=== PATIENT | male | born 1950 ===

== ENCOUNTER 2019-01-03 10:25 | Emergency (ER) | payer MEDICARE ==
[2019-01-03 11:07] LABS: Basophils % (Auto) 0.5 % (0.0-1.8); Eosinophils # (Auto) 0.1 K/mm3 (0.0-0.4); Eosinophils % (Auto) 1.7 % (0.0-4.3); Hematocrit 45.3 % (35.5-45.6); Hemoglobin 15.3 gm/dl (11.8-15.2); Lymphocytes # (Auto) 1.9 K/mm3 (1.2-5.4); Mean Corpuscular HGB Conc 34 % (32-34); Mean Corpuscular Volume 97 fl (84-94); Monocytes # (Auto) 0.8 K/mm3 (0.0-0.8); Monocytes % (Auto) 9.7 % (0.0-7.3); Platelet Count 263 K/mm3 (140-440); Red Blood Count 4.65 M/mm3 (3.65-5.03); Red Cell Distribution Width 13.5 % (13.2-15.2)
[2019-01-03 11:24] LABS: BUN/Creatinine Ratio 19; Blood Urea Nitrogen 19 mg/dL (9-20); Calcium 8.6 mg/dL (8.4-10.2); Hemolysis Index 10
--- NOTE | 2019-01-03 11:32 | Emergency Department Report ---
ED Psych HPI - General Chief Complaint: GI Bleed Stated Complaint: VOMIT BLOOD Time Seen by Provider: 01/03/19 10:57 Source: patient Mode of arrival: Ambulatory Limitations: No Limitations - History of Present Illness Initial Comments: Patient is a 68-year-old male that presents emergency room with complaints of blood streaking in his vomitus and suicidal ideations and depression. Patient states that he had blood streaking in his vomitus times one last night. Patient states he is not having vomiting or pain at this time. Patient denies abdominal pain. Patient denies chest pain. Patient denies changes in and color in his stool and change in bowel habits. Patient denies rectal pain. Patient denies bright red blood per rectum. Patient denies melena. Patient denies fever and chills. After initial conversation was down talking by his significant vomitus, the patient states she's been having thoughts of suicide. Patient states been depr essed. Patient states she is currently at [facility] but is not getting the help he needs. Patient states he has thoughts of jumping into traffic to take his life. Patient states she is tired of living. MD Complaint: suicidal ideation, feels depressed -: Gradual, week(s) Associated Psychiatric Symptoms: depression, suicidal ideation History of same: Yes Quality: constant Improves With: none Worsens With: none Associated Symptoms: vomiting. denies: confusion, headache, shortness of breath, nausea, syncope, insomnia If Self Harm: admits thoughts of, has plan - Related Data Allergies Allergy/AdvReac Type Severity Reaction Status Date / Time No Known Allergies Allergy Unverified 03/29/18 16:46 ED Review of Systems ROS: Stated complaint: VOMIT BLOOD Other details as noted in HPI Constitutional: denies: chills, fever Eyes: denies: eye pain, eye discharge, vision change ENT: denies: ear pain, throat pain Respiratory: denies: cough, shortness of breath, wheezing Cardiovascular: denies: chest pain, palpitations Endocrine: no symptoms reported Gastrointestinal: vomiting, hematemesis. denies: abdominal pain, nausea, diarrhea, constipation, melena, hematochezia Genitourinary: denies: urgency, dysuria Musculoskeletal: denies: back pain, joint swelling, arthralgia Skin: denies: rash, lesions Neurological: denies: headache, weakness, paresthesias Psychiatric: depression, suicidal thoughts. denies: anxiety Hematological/Lymphatic: denies: easy bleeding, easy bruising ED Past Medical Hx - Past Medical History Previous Medical History?: Yes Hx Hypertension: Yes Hx Psychiatric Treatment: Yes - Surgical History Past Surgical History?: Yes Hx Appendectomy: Yes Additional Surgical History: BACK SURGERY - Family History Family history: no significant - Social History Smoking Status: Never Smoker Substance Use Type: None ED Physical Exam - General Limitations: No Limitations General appearance: alert, in no apparent distress - Head Head exam: Present: atraumatic, normocephalic - Eye Eye exam: Present: normal appearance - ENT ENT exam: Present: mucous membranes moist - Neck Neck exam: Present: normal inspection - Respiratory Respiratory exam: Present: normal lung sounds bilaterally. Absent: respiratory distress, wheezes, rales, rhonchi - Cardiovascular Cardiovascular Exam: Present: regular rate, normal rhythm. Absent: systolic murmur, diastolic murmur, rubs, gallop - GI/Abdominal GI/Abdominal exam: Present: soft, normal bowel sounds. Absent: distended, tenderness, guarding - Rectal Rectal exam: Present: deferred - Extremities Exam Extremities exam: Present: normal inspection - Back Exam Back exam: Present: normal inspection - Neurological Exam Neurological exam: Present: alert, oriented X3 - Psychiatric Psychiatric exam: Present: normal affect, normal mood - Skin Skin exam: Present: warm, dry, intact, normal color. Absent: rash ED Course Vital Signs 01/03/19 01/03/19 01/03/19 10:33 14:36 20:09 Temperature 98.6 F 98.4 F 98.5 F Pulse Rate 70 71 72 Respiratory 22 18 20 Rate Blood Pressure 144/85 Blood Pressure 141/56 151/85 [Left] O2 Sat by Pulse 97 95 97 Oximetry 01/04/19 01/04/19 01:00 09:25 Temperature 97.6 F 98.3 F Pulse Rate 68 61 Respiratory 20 18 Rate Blood Pressure Blood Pressure 148/72 114/69 [Left] O2 Sat by Pulse 98 97 Oximetry - Reevaluation(s) Reevaluation #1: Initial evaluation done. Patient was originally here for emergent evaluation of his blood streaking in his vomitus however the patient admitted to suicidal ideations. Patient placed on 1013. Patient was evaluated by psych. 01/03/19 11:31 Reevaluation #2: Patient is medically clear. Patient refuses in the ER for GI bleed and if patient was discharged I would recommend outpatient treatment for his blood- tinged vomitus. However since the patient is now on a 1013 for psychiatric condition patient will remain in the ER but is medically cleared. I discussed all results and recommendations with patient. 01/03/19 14:40 ED Medical Decision Making - Lab Data Result diagrams: 01/03/19 10:53 01/03/19 10:51 - Medical Decision Making Patient is a 68-year-old male that presents emergency room with blood-streaked vomitus times one. Patient has been stable in the ER. Patient has any vomiting or symptoms in the ER. Patient complained upon initial evaluation of suicidal ideations with depression. Patient also stated he had a plan to jump [employer]. Patient was initially placed on 1013. Patient is medically clear. Patient's labs unremarkable. As far as the patient's blood-streaked vomitus the patient is medically cleared and can be followed up as an outpatient. Patient's H&H is normal. Patient seen by mental health. Patient will remain in the ER on a 1013 until accepted into appropriate psychiatric facility. - Differential Diagnosis depression. Blood in vomitus. Suicidal ideation with the plan Critical care attestation.: If time is entered above; I have spent that time in minutes in the direct care of this critically ill patient, excluding procedure time. ED Disposition Clinical Impression: Suicidal ideation Vomiting blood Qualifiers: Nausea presence: with nausea Qualified Code(s): K92.0 - Hematemesis Depression Qualifiers: Depression Type: unspecified Qualified Code(s): F32.9 - Major depressive disorder, single episode, unspecified Disposition: DC-01 TO HOME OR SELFCARE Is pt being admited?: No Does the pt Need Aspirin: No Condition: Stable Referrals: PRIMARY CARE, [Primary Care Provider] - 3-5 Days JULISSA MORGAN MD [Staff Physician] - 3-5 Days Forms: Accompanied Note Time of Disposition: 14:42
[2019-01-03 13:03] LABS: INR 0.96 (0.87-1.13)
[2019-01-03 13:04] LABS: Partial Thromboplastin Time 26.3 Sec. (24.2-36.6)
[2019-01-03 13:05] LABS: Bilirubin,Urine NEG (Negative); Blood,Urine NEG (Negative); Color,Urine Yellow (Yellow); Mucus,Urine FEW /HPF; Protein,Urine <15 mg/dL mg/dL (Negative); Urobilinogen,Urine < 2.0 mg/dL (<2.0)
[2019-01-03 13:50] LABS: Amphetamine Screen,Urine PRESUMPTIVE NEGATIVE; Benzodiazepines Screen,Urine PRESUMPTIVE NEGATIVE; Cannabinoid Screen,Urine PRESUMPTIVE NEGATIVE; Cocaine Screen,Urine PRESUMPTIVE NEGATIVE; Methadone Screen,Urine PRESUMPTIVE NEGATIVE; Opiate Screen,Urine PRESUMPTIVE NEGATIVE
[2019-01-04 09:26] VITALS: BP 114/69
--- NOTE | 2019-01-04 11:03 | Consultation ---
History of Present Illness - Reason for Consult Consult date: 01/04/19 Reason for consult: Mental Health Evaluation Requesting physician: SHAWN WAYNE III - Chief Complaint Chief complaint: "I am not suicidal, I'm homeless" - History of Present Psychiatric Illness 68 y.o. white male who presented to the ER for vomiting. he was a patient with [facility]. Psychiatry was consulted to see the patient because he may have endorsed SI's. Today the patient was calm and cooperative during the assessment. He stated that he was feeling "horrible" physically and mentally yesterday and may have said something unsafe. He stated that he feel much better today and would like to return to [facility]. He stated that his mean issue is being homeless for the past few years. He denies any previous suicide attempts in the past. He stated that he is willing to continue his mental health treatment ([facility]). He denies SI/HI's and AVH's. He denies erratic sleep and recreational drug use. Medications and Allergies Allergies Allergy/AdvReac Type Severity Reaction Status Date / Time No Known Allergies Allergy Unverified 03/29/18 16:46 Past psychiatric history - Past Medical History Past Medical History: hypertension Past Surgical History: No surgical history - past Psychiatric treatment and history psychiatric treatment history: Hx of depression. Denies a fam psy hx. - Social History Social history: other (Homeless) Mental Status Exam - Vital signs Last Vital Signs Temp 98.3 F 01/04/19 09:25 Pulse 61 01/04/19 09:25 Resp 18 01/04/19 09:25 BP 114/69 01/04/19 09:25 Pulse Ox 97 01/04/19 09:25 - Exam Narrative exam: MSE: Appearance: calm,cooperative Behavior: regular eye contact Speech: regular rate and tone Mood: "okay" Affect: congruent to mood Thought Process: linear l Thought Content: denies SI/HI's and AVH's Motor Activity: laying in bed Cognition: A/O x3 Insight: appropriate Judgment: appropriate Results Result Diagrams: 01/03/19 10:53 01/03/19 10:51 Abnormal lab results 01/03/19 01/03/19 01/03/19 Range/Units 10:51 10:53 11:28 Hgb 15.3 H (11.8-15.2) gm/dl MCV 97 H (84-94) fl MCH 33 H (28-32) pg Preston % (Auto) 9.7 H (0.0-7.3) % Glucose 101 H (75-100) mg/dL Salicylates < 0.3 L (2.8-20.0) mg/dL Acetaminophen (10.0-30.0) ug/mL 01/03/19 Range/Units 11:28 Hgb (11.8-15.2) gm/dl MCV (84-94) fl MCH (28-32) pg Preston % (Auto) (0.0-7.3) % Glucose (75-100) mg/dL Salicylates (2.8-20.0) mg/dL Acetaminophen < 5.0 L (10.0-30.0) ug/mL All other labs normal. Assessment and Plan Assessment and plan: Impression: MDD. Today the patient was calm and cooperative during the assessment. The patient is no threat to self. Recommendation/Plan: Rescind 1013. Discussed generalized coping skill with the patient, he verbalized understanding. Dispo: The patient was accepted at [facility] (voluntary program). Will staff with Dr Myrna Gonzalez.
== END 2019-01-04 11:42 | disposition home or self-care (01) ==
LOC: ED 10:25 → EEVIPCON 10:25 → ED 01-04 11:42
DX: F32.9 Major depressive disorder, single episode, unspecified (principal); K92.0 Hematemesis
CPT/HCPCS: 36415; 80048; 80307; 80320; 81001; 85025; 85610; 85730; G0480